=== PATIENT | female | born 1995 | race Caucasian/White ===

== ENCOUNTER 2019-01-07 00:20 | Emergency (ER) | payer OTHER ==
[2019-01-07 00:28] VITALS: BP 94/57
--- NOTE | 2019-01-07 00:52 | EDPHY ---
H & P Stated Complaint: Laceration Time Seen by Provider: 01/07/19 00:45 HPI/ROS: Chief Complaint: Hand laceration HPI: 23-year-old woman sustained a laceration to her left hand with a kitchen knife. The patient is up-to-date in her tetanus. Knife was clean. Injury occurred approximately 1 hr ago. ROS PMH: None Social History: [No] smoking, [no] alcohol, [ no recreational drug use] Family History: [non-contributory] Physical Exam: General: Awake, alert, no acute distress Left hand:. Patient has a 1.3 cm linear laceration in the lateral aspect of her thenar region. It is into the subcutaneous tissue. She has full flexion extension strength of her proximal and distal phalanx. Sensations intact laterally medially. Capillary refills less than 3 sec. Skin: No rash - Personal History LMP (Females 10-55): 15-21 Days Ago Current Tetanus/Diphtheria Vaccine: Yes Current Tetanus Diphtheria and Acellular Pertussis (TDAP): Yes Tetanus Vaccine Date: 2014 - Medical/Surgical History Hx Asthma: No Hx Chronic Respiratory Disease: No Hx Diabetes: No Hx Cardiac Disease: No Hx Renal Disease: No Hx Cirrhosis: No Hx Alcoholism: No Hx HIV/AIDS: No Hx Splenectomy or Spleen Trauma: No - Social History Smoking Status: Never smoked Constitutional: Initial Vital Signs Temperature (C) 36.7 C 01/07/19 00:21 Heart Rate 71 01/07/19 00:21 Respiratory Rate 16 01/07/19 00:21 Blood Pressure 94/57 L 01/07/19 00:21 O2 Sat (%) 95 01/07/19 00:21 O2 Delivery Mode Room Air Allergies/Adverse Reactions: No Known Allergies Allergy (Unverified 01/07/19 00:21) Home Medications: Medication Instructions Recorded NK [No Known Home Meds] 01/07/19 Medical Decision Making Procedures: Procedure: Laceration repair. Verbal consent was obtained from the patient. The 1.3 cm laceration on the left hand was anesthetized in the usual fashion. The wound was irrigated, draped and explored to its base with a gloved finger. There were no deep structures involved. No tendon injury was identified. The wound was repaired with 3, 5-0 Ethilon simple interrupted sutures. The wound repair was uncomplicated. The procedure was performed by myself. Departure - Departure Disposition: Home, Routine, Self-Care Clinical Impression: Laceration Condition: Good Instructions: Care For Your Stitches (ED), Laceration (ED) Additional Instructions: Sutures need to be removed in 10 days. Return to the emergency department we will remove them for you. Return sooner for signs of infection including redness, discharge from the wound , streaking up your hand, fevers, or any other concerns. Referrals: [facility],. [Clinic] - As per Instructions
== END 2019-01-07 01:36 | disposition home or self-care (01) ==
PROC: 0HQGXZZ Repair Left Hand Skin, External Approach (ICD-10-PCS; principal; 2019-01-07)
DX: S61.412A Laceration without foreign body of left hand, initial encounter (principal); W26.0XXA Contact with knife, initial encounter; Y92.000 Kitchen of unspecified non-institutional (private) residence as the place of occurrence of the external cause; Y93.G1 Activity, food preparation and clean up